=== PATIENT | female | born 1990 | race Caucasian/White ===

== ENCOUNTER 2018-10-30 10:19 | Outpatient (CLI) | payer BC ==
[~2018-10-30] VITALS: Ht 157.5 cm; Wt 109.5 kg
[2018-10-30 11:08] LABS: MICROSCOPIC INDICATED
[2018-10-30 11:16] VITALS: BP 138/83
[2018-10-30] MEDS ORDERED: METF10007 PO (11:55)
[2018-10-30] MEDS ORDERED: RIZA10TA22 PO (11:58)
[2018-10-30] MEDS ORDERED: PANT40TA3 PO (12:03)
[2018-10-30 21:59] LABS: AMPHETAMINE SCREEN, URINE Negative (Negative); BARBITURATE SCREEN, URINE Negative (Negative); BENZODIAZEPINE SCREEN, URINE Negative (Negative); CANNABINOID SCREEN, URINE Positive (Negative); COCAINE SCREEN, URINE Negative (Negative); METHADONE SCREEN, URINE Negative (Negative); OPIATE SCREEN, URINE Negative (Negative)
== END 2018-10-30 12:27 | disposition home or self-care (01) ==
LOC: LDOP 10:19
PROVIDERS: ATTEND Obstetrics & Gynecology
DX: O42.913 Preterm premature rupture of membranes, unspecified as to length of time between rupture and onset of labor, third trimester (principal); Z3A.32 32 weeks gestation of pregnancy
CPT/HCPCS: 59025; 80307; 81001; 87086; 99211; G0463

== ENCOUNTER 2018-11-19 14:31 | Outpatient (CLI) | payer BC ==
[~2018-11-19] VITALS: Ht 157.5 cm; Wt 110.6 kg
[~2018-11-19 14:31] MED LIST: METF10007 PO; PANT40TA3 PO; RIZA10TA22 PO
[2018-11-19 15:05] VITALS: BP 137/84
[2018-11-19] MEDS ORDERED: TERBUTALINE 1 MG/ML, 1ML ONE (16:08)
[2018-11-19] MEDS ORDERED: TERBUTALINE 1 MG/ML, 1ML SQ ONE (16:30)
== END 2018-11-19 17:00 | disposition home or self-care (01) ==
LOC: LDOP 14:31
PROVIDERS: ATTEND Obstetrics & Gynecology
DX: O26.893 Other specified pregnancy related conditions, third trimester (principal); R10.9 Unspecified abdominal pain; Z3A.34 34 weeks gestation of pregnancy
CPT/HCPCS: 59025; 96372; 99211; J3105; G0463

== ENCOUNTER 2018-11-20 14:00 | Observation (INO) | payer BC ==
[~2018-11-20] VITALS: Ht 157.5 cm; Wt 110.9 kg
[2018-11-20] MEDS ORDERED: PLEASE ENTER HEIGHT AND WEIGHT MC SCH (14:46)
[2018-11-20 14:59] VITALS: BP 126/88
[2018-11-20] MEDS ORDERED: LACTATED RINGERS 1,000 ML IV SCH ×2 (15:00)
[2018-11-20] MEDS ORDERED: niFEDipine ER 30 MG TABLET.ER PO ONE (19:30)
[2018-11-20] MEDS ORDERED: niFEDipine ER 30 MG TABLET.ER ONE ×2 (19:35→19:36)
[2018-11-20] MEDS ORDERED: NEWBORN KIT ONE (20:31)
[2018-11-20] MEDS ORDERED: LIDOCAINE 1%, 20ML ONE (20:31)
[2018-11-20] MEDS ORDERED: OXYTOCIN 30U/ 0.9% NaCL 500ML 500 ML ONE (20:32)
[2018-11-20] MEDS ORDERED: OXYTOCIN 10 UNITS/ML, 1ML ONE (20:32)
[2018-11-20] MEDS ORDERED: MISOPROSTOL 200 MCG TABLET ONE (20:32)
== END 2018-11-20 20:32 | disposition home or self-care (01) ==
LOC: LDOP 14:00 → LDIP 14:35
PROVIDERS: ADMIT Obstetrics & Gynecology; ATTEND Obstetrics & Gynecology
DX: O62.9 Abnormality of forces of labor, unspecified (principal); Z3A.35 35 weeks gestation of pregnancy
CPT/HCPCS: 59025; 76819; G0378; J7120; 96360; 96361

== ENCOUNTER 2018-12-08 14:03 | Outpatient (CLI) | payer BC ==
[~2018-12-08] VITALS: Ht 157.5 cm; Wt 111.6 kg
[2018-12-08 14:17] VITALS: BP 135/85
[2018-12-08] MEDS ORDERED: LACTATED RINGERS 1,000 ML IVBOLUS ONE (15:00)
== END 2018-12-08 16:21 | disposition home or self-care (01) ==
LOC: LDOP 14:03
PROVIDERS: ATTEND Obstetrics & Gynecology
DX: O26.893 Other specified pregnancy related conditions, third trimester (principal)
CPT/HCPCS: 59025; 96360; 99211; J7120; G0463

== ENCOUNTER 2018-12-19 05:14 | Inpatient (IN) | payer BC ==
[~2018-12-19] VITALS: Ht 157.5 cm; Wt 112.3 kg
[2018-12-19] MEDS ORDERED: NEWBORN KIT ONE (05:21)
[2018-12-19] MEDS ORDERED: LACTATED RINGERS 1,000 ML IVBOLUS ONE (05:30)
[2018-12-19] MEDS ORDERED: METOCLOPRAMIDE 5 MG/ML, 2ML IV ONE (05:30)
[2018-12-19] MEDS ORDERED: SODIUM CITRATE/CITRIC ACID 15 ML UDC PO ONE (05:30)
[2018-12-19 05:52] LABS: BASOPHILS # (AUTO) 0.02 x10^3/uL (0-0.1); BASOPHILS % (AUTO) 0 % (0-1); EOSINOPHILS # (AUTO) 0.13 x10^3/uL (0-0.4); EOSINOPHILS % (AUTO) 2 % (1-7); LYMPHOCYTES # (AUTO) 2.03 x10^3/uL (1-3.4); LYMPHOCYTES % (AUTO) 25 % (22-44); MD NO; MEAN CORPUSCULAR HEMOGLOBIN 25.5 pg (27.0-34.8); MEAN CORPUSCULAR HGB CONC 33.6 g/dL (32.4-35.8); MEAN CORPUSCULAR VOLUME 75.9 fL (80-100); MEAN PLATELET VOLUME 7.8 fL (7.4-10.4); MONOCYTES # (AUTO) 0.61 x10^3/uL (0.2-0.8); MONOCYTES % (AUTO) 8 % (2-9); NEUTROPHILS # (AUTO) 5.28 x10^3/uL (1.8-6.8); NEUTROPHILS % (AUTO) 66 % (42-75); PLATELET COUNT 311 x10^3/uL (130-400); RED BLOOD COUNT 4.13 x10^6/uL (3.82-5.3); RED CELL DISTRIBUTION WIDTH 19.5 % (9.6-15.2)
[2018-12-19 06:13] VITALS: BP 137/77
[2018-12-19] MEDS ORDERED: OXYTOCIN 30U/ 0.9% NaCL 500ML 500 ML ONE (06:49)
[2018-12-19] MEDS ORDERED: SODIUM CITRATE/CITRIC ACID 15 ML UDC ONE ×2 (06:49→07:11)
[2018-12-19] MEDS ORDERED: morphine SULFATE/PF 1 MG/ML, 10ML ONE (07:31)
[2018-12-19] MEDS ORDERED: KETOROLAC 30 MG/1 ML ONE (07:34)
[2018-12-19] MEDS ORDERED: ONDANSETRON 2MG/ML, 2ML ONE (07:34)
[2018-12-19] MEDS ORDERED: WATER-INJECTION,STERILE 10 ML IV ONE (07:34)
[2018-12-19] MEDS ORDERED: OXYTOCIN 10 UNITS/ML, 1ML ONE (07:34)
[2018-12-19] MEDS ORDERED: CEFAZOLIN 1,000 MG ONE (07:34)
[2018-12-19] MEDS ORDERED: DEXAMETHASONE 4 MG/ML, 1ML ONE (07:34)
[2018-12-19 07:45] LABS: AMPHETAMINE SCREEN, URINE Negative (Negative); BARBITURATE SCREEN, URINE Negative (Negative); BENZODIAZEPINE SCREEN, URINE Negative (Negative); CANNABINOID SCREEN, URINE Positive (Negative); COCAINE SCREEN, URINE Negative (Negative); METHADONE SCREEN, URINE Negative (Negative); OPIATE SCREEN, URINE Negative (Negative)
[2018-12-19] MEDS ORDERED: LACTATED RINGERS 1,000 ML IV SCH (08:58)
[2018-12-19] MEDS: LACTATED RINGERS 1,000 ML IV SCH ×2 (08:58→16:58)
[2018-12-19] MEDS ORDERED: ACETAMINOPHEN 325 MG TABLET PO PRN ×2 (09:00)
[2018-12-19] MEDS ORDERED: morphine SULFATE 10 MG/ML, 1ML IVPush PRN ×2 (09:00)
[2018-12-19] MEDS ORDERED: SIMETHICONE 80 MG CHEW TAB PO PRN (09:00)
[2018-12-19] MEDS ORDERED: ONDANSETRON 2MG/ML, 2ML IV PRN (09:00)
[2018-12-19] MEDS ORDERED: CALCIUM CARBONATE 500 MG TAB.CHEW PO PRN (09:00)
[2018-12-19] MEDS ORDERED: RHOGAM FROM BLOOD BANK 1 NOTE EA IM/IV ONE (09:00)
[2018-12-19] MEDS: PRENATAL VIT/IRON/FA 1 EACH TABLET PO SCH (09:00)
[2018-12-19] MEDS ORDERED: METOCLOPRAMIDE 5 MG/ML, 2ML IV PRN (09:00)
[2018-12-19] MEDS ORDERED: OXYcodone/APAP 5/325MG TABLET PO PRN (09:00)
[2018-12-19] MEDS ORDERED: MEASLES,MUMPS&RUBELLA VACC/PF 0.5 ML SQ-VACC PRN (09:00)
[2018-12-19] MEDS ORDERED: MISOPROSTOL 200 MCG TABLET PR PRN (09:00)
[2018-12-19] MEDS: OXYTOCIN 30U/ 0.9% NaCL 500ML 500 ML IV SCH ×2 (09:14→18:58)
[2018-12-19] MEDS ORDERED: DIPHENHYDRAMINE 50 MG/ML, 1ML ONE (11:09)
[2018-12-19] MEDS ORDERED: DIPHENHYDRAMINE 50 MG/ML, 1ML IVPush PRN (11:30)
[2018-12-19 11:52] VITALS: BP 119/81
[2018-12-19 16:00] VITALS: BP 126/89
[2018-12-19 16:01] LABS: MEAN CORPUSCULAR HEMOGLOBIN 24.6 pg (27.0-34.8); MEAN CORPUSCULAR HGB CONC 32.4 g/dL (32.4-35.8); MEAN CORPUSCULAR VOLUME 75.8 fL (80-100); MEAN PLATELET VOLUME 7.8 fL (7.4-10.4); PLATELET COUNT 298 x10^3/uL (130-400); RED BLOOD COUNT 3.88 x10^6/uL (3.82-5.3); RED CELL DISTRIBUTION WIDTH 18.8 % (9.6-15.2)
[2018-12-19 16:44] LABS: BASOPHILS # (AUTO) 0.03 x10^3/uL (0-0.1); BASOPHILS % (AUTO) 0 % (0-1); EOSINOPHILS % (AUTO) 0 % (1-7); LYMPHOCYTES # (AUTO) 1.06 x10^3/uL (1-3.4); LYMPHOCYTES % (AUTO) 10 % (22-44); MD SCAN; MONOCYTES # (AUTO) 0.48 x10^3/uL (0.2-0.8); MONOCYTES % (AUTO) 5 % (2-9); NEUTROPHILS # (AUTO) 9.22 x10^3/uL (1.8-6.8); NEUTROPHILS % (AUTO) 86 % (42-75)
[2018-12-19] MEDS: KETOROLAC 30 MG/1 ML IV PRN ×2 (17:49→23:58)
[2018-12-19 19:10] VITALS: BP 135/84
[2018-12-20] VITALS: BP 110/75
[2018-12-20] MEDS: LACTATED RINGERS 1,000 ML IV SCH ×3 (00:58→16:58)
[2018-12-20 04:00] VITALS: BP 100/69
[2018-12-20] MEDS: OXYTOCIN 30U/ 0.9% NaCL 500ML 500 ML IV SCH ×2 (04:58→14:58)
[2018-12-20] MEDS: KETOROLAC 30 MG/1 ML IV PRN (05:52)
[2018-12-20 09:14] VITALS: BP 127/85
[2018-12-20] MEDS: PRENATAL VIT/IRON/FA 1 EACH TABLET PO SCH (11:59)
[2018-12-20] MEDS: IBUPROFEN 600 MG TABLET PO PRN ×3 (11:59→23:52)
[2018-12-20] MEDS: DOCUSATE 100 MG CAPSULE PO PRN ×2 (11:59→20:13)
[2018-12-20 19:40] VITALS: BP 131/95
[2018-12-20] MEDS: FERROUS SULFATE 325 MG TABLET PO SCH (20:13)
[2018-12-20] MEDS: OXYcodone/APAP 5/325MG TABLET PO PRN (22:15)
[2018-12-21] MEDS: LACTATED RINGERS 1,000 ML IV SCH ×2 (00:22→07:21)
[2018-12-21] MEDS: OXYTOCIN 30U/ 0.9% NaCL 500ML 500 ML IV SCH (00:22)
[2018-12-21] MEDS: OXYcodone/APAP 5/325MG TABLET PO PRN ×3 (02:01→10:31)
[2018-12-21] MEDS: IBUPROFEN 600 MG TABLET PO PRN (06:07)
[2018-12-21 07:30] VITALS: BP 124/87
[2018-12-21] MEDS: PRENATAL VIT/IRON/FA 1 EACH TABLET PO SCH (07:47)
[2018-12-21] MEDS: DOCUSATE 100 MG CAPSULE PO PRN (07:47)
[2018-12-21] MEDS: FERROUS SULFATE 325 MG TABLET PO SCH (07:47)
[2018-12-21] MEDS ORDERED: IBUP-1222 PO (09:52)
[2018-12-21] MEDS ORDERED: OXYC-302 PO (09:53)
[2018-12-21] MEDS ORDERED: FERR325T5 PO (09:58)
== END 2018-12-21 11:35 | disposition home or self-care (01) | DRG 788 ==
LOC: LDIP 05:14 → 2NW 11:20
PROVIDERS: ADMIT Obstetrics & Gynecology; ATTEND Obstetrics & Gynecology
PROC: 10D00Z1 Extraction of Products of Conception, Low, Open Approach (ICD-10-PCS; principal; 2018-12-19)
DX: O34.211 Maternal care for low transverse scar from previous cesarean delivery (principal); O32.6XX0 Maternal care for compound presentation, not applicable or unspecified; Z37.0 Single live birth; Z3A.39 39 weeks gestation of pregnancy; Z88.2 Allergy status to sulfonamides; Z91.018 Allergy to other foods; Z80.3 Family history of malignant neoplasm of breast; Z82.49 Family history of ischemic heart disease and other diseases of the circulatory system; Z83.3 Family history of diabetes mellitus; Z87.891 Personal history of nicotine dependence; O99.214 Obesity complicating childbirth; E66.9 Obesity, unspecified; Z3A.00 Weeks of gestation of pregnancy not specified; O99.02 Anemia complicating childbirth; D64.9 Anemia, unspecified
CPT/HCPCS: 36415; 80307; 85025; 86850; 86900; G0378; J0690; J1100; J1885; J2274; J2405; C1765; J1200; J2590; J2765; J7120